=== PATIENT | male | born 1970 | race Asian ===

== ENCOUNTER 2016-10-28 15:26 | Emergency (ER) | payer SELFPAY ==
[~2016-10-28] VITALS: Ht 162.6 cm; Wt 76.7 kg
[2016-10-28 15:31] VITALS: BP 134/76
== END 2016-10-28 17:54 | disposition home or self-care (01) ==
LOC: ED 15:26
DX: L50.9 Urticaria, unspecified (principal)
CPT/HCPCS: J2930; Q0163